=== PATIENT | female | born 1960 | race Caucasian/White ===

== ENCOUNTER 2024-07-04 12:58 | Emergency (ER) | payer MEDICARE ==
[~2024-07-04] VITALS: Ht 157.5 cm; Wt 59.1 kg
[2024-07-04 13:21] VITALS: BP 125/62; PULSE 70; RESP 16; TEMP 97.7; O2SAT 99
[2024-07-04] MEDS: TETanus/Pertussis (Acell)/Diphther VAC/PF (Tdap-Adult) 0.5ml syringe IMVAC ONE (14:27)
[2024-07-04] MEDS: LIDOcaine 1% 30ml preserv. free vial IJ ONE (14:40)
== END 2024-07-04 16:07 | disposition home or self-care (01) ==
LOC: ER 12:59
DX: S61.212A Laceration without foreign body of right middle finger without damage to nail, initial encounter (principal); S67.21XA Crushing injury of right hand, initial encounter; Z23 Encounter for immunization; W23.0XXA Caught, crushed, jammed, or pinched between moving objects, initial encounter; Y93.89 Activity, other specified; Y92.89 Other specified places as the place of occurrence of the external cause; Y99.8 Other external cause status
CPT/HCPCS: 12001; 73130; 90715; 99283; A6402; G0008; Z7610; 90471; A6449

== ENCOUNTER 2024-08-24 13:11 | Emergency (ER) | payer MEDICARE, OTHER ==
[~2024-08-24] VITALS: Ht 162.6 cm; Wt 57.1 kg
[2024-08-24 13:18] VITALS: BP 134/72; PULSE 57; RESP 16; TEMP 97.7; O2SAT 99
[2024-08-24] MEDS: LIDOcaine 1% 30ml preserv. free vial IJ ONE (14:22)
[2024-08-24] MEDS ORDERED: CEPH-585 PO (15:38)
== END 2024-08-24 15:51 | disposition home or self-care (01) ==
LOC: ER 13:12
DX: S61.012A Laceration without foreign body of left thumb without damage to nail, initial encounter (principal); Z91.012 Allergy to eggs; W22.8XXA Striking against or struck by other objects, initial encounter; Y93.89 Activity, other specified; Y92.89 Other specified places as the place of occurrence of the external cause; Y99.8 Other external cause status
CPT/HCPCS: 12001; 73130; 99283; A4565; A6402; Z7610; A6449